=== PATIENT | female | born 1965 | race Caucasian/White ===

== ENCOUNTER → 2018-12-26 | Outpatient (CLI) | payer BC ==
--- NOTE | 2018-12-29 07:57 | MM ---
Reason for exam: screening (asymptomatic). Last mammogram was performed 1 year and 5 months ago. History: Patient is postmenopausal. Family history of breast cancer in paternal aunt at age 58, breast cancer in paternal aunt at age 56, and breast cancer in paternal cousin at age 40. Benign right mammotome panel of the right breast, November 27, 2006. Took hormonal contraceptives for 10 years beginning at age 23. Physical Findings: A clinical breast exam by your physician is recommended on an annual basis and results should be correlated with mammographic findings. MG 3D Screening Mammo W/Cad Bilateral CC and MLO view(s) were taken. XCCL view(s) were taken of the right breast. Prior study comparison: July 31, 2017, bilateral MG diagnostic mammo w CAD PING. April 30, 2016, right breast MG work up mamm w CAD RT. The breast tissue is heterogeneously dense. This may lower the sensitivity of mammography. Previous mammotome biopsy in the right posterior breast. There is chronic nodularity bilaterally. There is no discrete abnormality. ASSESSMENT: Benign, BI-RAD 2 RECOMMENDATION: Routine screening mammogram of both breasts in 1 year.
== END | disposition home or self-care (01) ==
LOC: RADMAMWWP 10:46
PROVIDERS: ATTEND Family Medicine
DX: Z12.31 Encounter for screening mammogram for malignant neoplasm of breast (principal)
CPT/HCPCS: 77063; 77067

== ENCOUNTER 2022-04-28 13:44 | Observation (INO) | payer BC ==
--- NOTE | 2022-04-28 14:18 | ED ---
General Adult HPI - General Chief complaint: Altered Mental Status Stated complaint: confusion, dizzy Time Seen by Provider: 04/28/22 13:53 Source: patient Mode of arrival: ambulatory Limitations: no limitations - History of Present Illness Initial comments: Dictation was produced using [employer] dictation software. please excuse any grammatical, word or spelling errors. Chief Complaint: 56-year-old female presents with significant other for altered mental status History of Present Illness: Is 56-year-old female presents emergency Department with her significant other. Patient states that her symptoms began 3 days ago however was significantly worse on waking up this morning. Patient and see if another were at a [facility] service when patient began having increased involuntary movements. Patient states that she's been feeling lightheaded. He decides to leave the [facility] service and came to the emergency department. Patient denies any pain complaints. Denies any constitutional symptoms. Family member states that patient's behavior is very abnormal. Patient denies any numbness or paresthesias. The ROS documented in this emergency department record has been reviewed and confirmed by me. Those systems with pertinent positive or negative responses have been documented in the HPI. All other systems are other negative and/or noncontributory. PHYSICAL EXAM: General Impression: Alert and oriented x3, not in acute distress, dystonic movements HEENT: Normocephalic atraumatic, extra-ocular movements intact, pupils equal and reactive to light bilaterally, mucous membranes moist. Cardiovascular: Heart regular rate and rhythm Chest: Able to complete full sentences, no retractions, no tachypnea Abdomen: abdomen soft, non-tender, non-distended, no organomegaly Musculoskeletal: Pulses present and equal in all extremities, no peripheral edema Motor: no focal deficits noted Neurological: CN II-XII grossly intact, no focal motor or sensory deficits noted Skin: Intact with no visualized rashes Psych: Normal affect and mood ED course: 56-year-old female presents emergency department for altered mental status, confusion and lightheadedness. Vital signs upon arrival are within acceptable limits. Patient is exhibiting signs of dystonic reaction. This point after history of present illness no obvious cause. Laboratory evaluation obtained. CBC, coag panel unremarkable. Metabolic panel shows potassium of 2.5. Urine drug screen positive for benzodiazepines. Patient given benztropine with no changes in her dystonic movements. Computed tomography scan of brain is unremarkable. At this point is unclear what is causing patient's symptoms. Patient be admitted with consultation to neurology. - Related Data Allergies Allergy/AdvReac Type Severity Reaction Status Date / Time No Known Allergies Allergy Verified 04/28/22 13:52 Review of Systems ROS Statement: Those systems with pertinent positive or pertinent negative responses have been documented in the HPI. ROS Other: All systems not noted in ROS Statement are negative. Past Medical History Past Medical History: Hypertension History of Any Multi-Drug Resistant Organisms: None Reported Past Surgical History: No Surgical Hx Reported Past Psychological History: No Psychological Hx Reported Smoking Status: Current every day smoker Past Alcohol Use History: Occasional Past Drug Use History: None Reported General Exam Limitations: no limitations Course Vital Signs 04/28/22 13:48 Temperature 98.3 F Pulse Rate 86 Respiratory 20 Rate Blood Pressure 103/64 O2 Sat by Pulse 99 Oximetry Medical Decision Making - Lab Data Result diagrams: 04/28/22 14:12 04/28/22 14:12 Lab Results 04/28/22 04/28/22 04/28/22 Range/Units 14:12 14:12 14:12 WBC 5.9 (3.8-10.6) k/uL RBC 4.59 (3.80-5.40) m/uL Hgb 13.7 (11.4-16.0) gm/dL Hct 40.7 (34.0-46.0) % MCV 88.8 (80.0-100.0) fL MCH 29.9 (25.0-35.0) pg MCHC 33.7 (31.0-37.0) g/dL RDW 12.6 (11.5-15.5) % Plt Count 211 (150-450) k/uL MPV 8.7 Neutrophils % 67 % Lymphocytes % 19 % Monocytes % 9 % Eosinophils % 1 % Basophils % 3 % Neutrophils # 3.9 (1.3-7.7) k/uL Lymphocytes # 1.1 (1.0-4.8) k/uL Monocytes # 0.5 (0-1.0) k/uL Eosinophils # 0.1 (0-0.7) k/uL Basophils # 0.2 (0-0.2) k/uL PT 11.4 (9.0-12.0) sec INR 1.1 (<1.2) APTT 24.7 (22.0-30.0) sec Sodium 134 L (137-145) mmol/L Potassium 2.5 L* (3.5-5.1) mmol/L Chloride 99 (98-107) mmol/L Carbon Dioxide 25 (22-30) mmol/L Anion Gap 10 mmol/L BUN 11 (7-17) mg/dL Creatinine 0.71 (0.52-1.04) mg/dL Est GFR (CKD-EPI)AfAm >90 (>60 ml/min/1.73 sqM) Est GFR (CKD-EPI)NonAf >90 (>60 ml/min/1.73 sqM) Glucose 128 H (74-99) mg/dL Calcium 9.2 (8.4-10.2) mg/dL Magnesium 1.7 (1.6-2.3) mg/dL Total Bilirubin 0.3 (0.2-1.3) mg/dL AST 30 (14-36) U/L ALT 17 (4-34) U/L Alkaline Phosphatase 69 (38-126) U/L Total Protein 7.1 (6.3-8.2) g/dL Albumin 4.3 (3.5-5.0) g/dL Urine Opiates Screen (NotDetected) Ur Oxycodone Screen (NotDetected) Urine Methadone Screen (NotDetected) Ur Propoxyphene Screen (NotDetected) Ur Barbiturates Screen (NotDetected) U Tricyclic Antidepress (NotDetected) Ur Phencyclidine Scrn (NotDetected) Ur Amphetamines Screen (NotDetected) U Methamphetamines Scrn (NotDetected) U Benzodiazepines Scrn (NotDetected) Urine Cocaine Screen (NotDetected) U Marijuana (THC) Screen (NotDetected) 04/28/22 Range/Units 14:13 WBC (3.8-10.6) k/uL RBC (3.80-5.40) m/uL Hgb (11.4-16.0) gm/dL Hct (34.0-46.0) % MCV (80.0-100.0) fL MCH (25.0-35.0) pg MCHC (31.0-37.0) g/dL RDW (11.5-15.5) % Plt Count (150-450) k/uL MPV Neutrophils % % Lymphocytes % % Monocytes % % Eosinophils % % Basophils % % Neutrophils # (1.3-7.7) k/uL Lymphocytes # (1.0-4.8) k/uL Monocytes # (0-1.0) k/uL Eosinophils # (0-0.7) k/uL Basophils # (0-0.2) k/uL PT (9.0-12.0) sec INR (<1.2) APTT (22.0-30.0) sec Sodium (137-145) mmol/L Potassium (3.5-5.1) mmol/L Chloride (98-107) mmol/L Carbon Dioxide (22-30) mmol/L Anion Gap mmol/L BUN (7-17) mg/dL Creatinine (0.52-1.04) mg/dL Est GFR (CKD-EPI)AfAm (>60 ml/min/1.73 sqM) Est GFR (CKD-EPI)NonAf (>60 ml/min/1.73 sqM) Glucose (74-99) mg/dL Calcium (8.4-10.2) mg/dL Magnesium (1.6-2.3) mg/dL Total Bilirubin (0.2-1.3) mg/dL AST (14-36) U/L ALT (4-34) U/L Alkaline Phosphatase (38-126) U/L Total Protein (6.3-8.2) g/dL Albumin (3.5-5.0) g/dL Urine Opiates Screen Not Detected (NotDetected) Ur Oxycodone Screen Not Detected (NotDetected) Urine Methadone Screen Not Detected (NotDetected) Ur Propoxyphene Screen Not Detected (NotDetected) Ur Barbiturates Screen Not Detected (NotDetected) U Tricyclic Antidepress Not Detected (NotDetected) Ur Phencyclidine Scrn Not Detected (NotDetected) Ur Amphetamines Screen Not Detected (NotDetected) U Methamphetamines Scrn Not Detected (NotDetected) U Benzodiazepines Scrn Detected H (NotDetected) Urine Cocaine Screen Not Detected (NotDetected) U Marijuana (THC) Screen Not Detected (NotDetected) Disposition Clinical Impression: Dystonia Disposition: ADMITTED IP TO THIS [facility] Condition: Fair Referrals: Olvin Moseley MD [Primary Care Provider] - 1-2 days Decision Time: 15:22
[2022-04-28] MEDS ORDERED: BENZTROPINE 2 MG/2 ML AMP IV STA (14:20)
[2022-04-28 14:29] LABS: Basophils # (A) 0.2 k/uL (0-0.2); Basophils % (A) 3 %; Eosinophils # (A) 0.1 k/uL (0-0.7); Eosinophils % (A) 1 %; HCT 40.7 % (34.0-46.0); HGB 13.7 gm/dL (11.4-16.0); Lymphocytes # (A) 1.1 k/uL (1.0-4.8); Lymphocytes % (A) 19 %; MCH 29.9 pg (25.0-35.0); MCHC 33.7 g/dL (31.0-37.0); MCV 88.8 fL (80.0-100.0); Mean Platelet Volume 8.7; Monocytes # (A) 0.5 k/uL (0-1.0); Monocytes % (A) 9 %; Neutrophils # (A) 3.9 k/uL (1.3-7.7); Neutrophils % (A) 67 %; Platelet Count 211 k/uL (150-450); RBC 4.59 m/uL (3.80-5.40); RDW 12.6 % (11.5-15.5); WBC 5.9 k/uL (3.8-10.6)
[2022-04-28 14:39] LABS: INR 1.1 (<1.2); Partial Thromboplastin Time 24.7 sec (22.0-30.0); Prothrombin Time 11.4 sec (9.0-12.0)
[2022-04-28 14:41] LABS: ALT 17 U/L (4-34); AST 30 U/L (14-36); African American GFR (CKD) >90 (>60 ml/min/1.73 sqM); Albumin 4.3 g/dL (3.5-5.0); Alkaline Phosphatase 69 U/L (38-126); Anion Gap 10 mmol/L; Blood Urea Nitrogen 11 mg/dL (7-17); Calcium 9.2 mg/dL (8.4-10.2); Carbon Dioxide 25 mmol/L (22-30); Chloride 99 mmol/L (98-107); Glucose 128 mg/dL (74-99); Magnesium 1.7 mg/dL (1.6-2.3); Non-African American GFR(CKD) >90 (>60 ml/min/1.73 sqM); Sodium 134 mmol/L (137-145); Total Bilirubin 0.3 mg/dL (0.2-1.3); Total Protein 7.1 g/dL (6.3-8.2)
[2022-04-28 14:44] LABS: Amphetamine Screen,Urine Not Detected (NotDetected); Barbiturate Screen,Urine Not Detected (NotDetected); Benzodiazepines Screen,Urine Detected (NotDetected); Cocaine Screen,Urine Not Detected (NotDetected); Methadone Screen, Urine Not Detected (NotDetected); Opiate Screen,Urine Not Detected (NotDetected); Oxycodone Screen, Urine Not Detected (NotDetected); Phencyclidine Screen,Urine Not Detected (NotDetected); Tricyclic Antidepressant,Urine Not Detected (NotDetected); Urn Cannabinoid Scrn Not Detected (NotDetected)
[2022-04-28 14:49] LABS: Potassium 2.5 mmol/L (3.5-5.1)
--- NOTE | 2022-04-28 14:57 | CT ---
EXAMINATION TYPE: CT brain wo con DATE OF EXAM: 04/28/2022 COMPARISON: None HISTORY: Altered mental status. CT DLP: 1099.4 mGycm Automated exposure control for dose reduction was used. Ventricles and sulci appear normal. There is no mass effect or midline shift. No sign of intracranial hemorrhage. Calvarium is intact. Skull base is intact. IMPRESSION: Normal unenhanced head CT scan.
[2022-04-28] MEDS ORDERED: NALOXONE 0.4 MG/ML 1 ML VIAL IV PRN (15:22)
[2022-04-28] MEDS ORDERED: ONDANSETRON 4 MG/2 ML VIAL IVP PRN (15:22)
[2022-04-28] MEDS: POTASSIUM CHLORIDE 20 MEQ in WATER FOR INJECTION 1 100ML.BAG IVPB SCH ×2 (15:27→20:53)
[2022-04-28] MEDS: SODIUM CHLORIDE 0.9% 1,000 ML IV SCH (15:34)
[2022-04-28] MEDS: POTASSIUM CHLORIDE ER 20 MEQ TAB.ER PO SCH (22:15)
[2022-04-29] MEDS: POTASSIUM CHLORIDE ER 20 MEQ TAB.ER PO SCH ×3 (08:56→21:26)
[2022-04-29 13:56] LABS: African American GFR (CKD) 112.4 (60.0-200.0); BUN/Creat Ratio 11.89 Ratio (12.00-20.00); Blood Urea Nitrogen 8.1 mg/dL (9.0-27.0); Calcium 8.6 mg/dL (8.7-10.3); Carbon Dioxide 21.2 mmol/L (20.0-27.5); Potassium 2.8 mmol/L (3.5-5.5)
[2022-04-29] MEDS: SODIUM CHLORIDE 0.9% 1,000 ML IV SCH (14:42)
[2022-04-29] MEDS ORDERED: ASPIRIN 81 MG PO STA (15:37)
--- NOTE | 2022-04-29 15:43 | P.CNNES ---
History of Present Illness Consult date: 04/29/22 Requesting physician: Zia Castillo Reason for Consult: Acute dystonia History of Present Illness: Patient is a 56-year-old right-handed female with history of hypertension, tobacco use came to the hospital yesterday at 1:44 PM for mental confusion, involuntary movements. Patient states that her cousins in August 2021. Patient was arranging the [facility] him, which occurred yesterday. She had been under stress, very busy for the last 3 days, preparing for the [facility]. Yesterday on the day of event, when she got out of bed, felt has no energy. She noticed that everybody has left and then she was running around the house, couldn't think, doing everything 6 times. She couldn't get things together. She got out of the house, had no makeup on. When she arrived to the [facility], she sat down in the chair and felt better. Patient apparently appears to be having tardive dyskinesia, with lip smacking. I spoke to patient's , who states that she has this tardive dyskinesia-type movements for last 3 years, which has slightly progressed over years, but became acutely worse yesterday. Yesterday he noticed all of a sudden, she was not acting right, her arms and legs and feet were twitching. They have been for last 20 years. She was very confused, disoriented, dizzy and nauseated, uncontrollable muscle spasms/twitches. Her chest was beat-red. He brought her to the hospital. Patient denies depression, although may get depressed "here and there", but never been treated, denies any bipolar disorder. No anxiety issues. Never been on psych medications. Vital signs arrival blood pressure 103/64 pulse rate 86 temperature 98.3. Blood test shows normal CBC, sodium is 134, potassium 2.5, renal functions are normal, hepatic panel normal. Urine drug screen positive for benzodiazepine. CT head is reported as normal. I personally reviewed CT head, agree with the findings. EKG shows sinus rhythm, incomplete right bundle branch block. Patient has hypertension, hyperlipidemia, heart murmur, denies diabetes. Patient states that she started smoking one pack per day at age 15, but she continued to age 29. When she reduced to smoking half pack per day and still smokes. She drinks alcohol once a week, not a heavy drinker. Denies any history of strokes. Patient's home medications include chlorthalidone, potassium, ibuprofen, Flexeril 10 mg at bedtime, benazepril, Xanax 0.5 mg daily, vitamin D. Patient states she does not take any antiplatelet medication at home. She lives with her and 2 children. Review of Systems All 14 points of review of systems reviewed, unremarkable except as mentioned above in HPI. Past Medical History Past Medical History: Hypertension Additional Past Medical History / Comment(s): Heart murmmer; had to stop heart to regulate rythm History of Any Multi-Drug Resistant Organisms: None Reported Past Surgical History: No Surgical Hx Reported, Tubal Ligation Past Anesthesia/Blood Transfusion Reactions: No Reported Reaction Additional Past Anesthesia/Blood Transfusion Reaction / Comment(s): No Hx of blood transfushion Past Psychological History: Anxiety Smoking Status: Current every day smoker Past Alcohol Use History: Occasional Past Drug Use History: None Reported Medications and Allergies Home Medications Medication Instructions Recorded Confirmed Type ALPRAZolam [Xanax] 0.5 mg PO DAILY 04/28/22 04/28/22 History Benazepril [Lotensin] 10 mg PO DAILY 04/28/22 04/28/22 History Chlorthalidone [Hygroton] 25 mg PO DAILY 04/28/22 04/28/22 History Cyclobenzaprine [Flexeril] 10 mg PO HS 04/28/22 04/28/22 History Ergocalciferol (Vitamin D2) 1,250 mcg PO QMONTHLY 04/28/22 04/28/22 History [Drisdol] Ibuprofen [Motrin] 800 mg PO QID PRN 04/28/22 04/28/22 History Potassium Chloride ER [K-Dur 10] 10 meq PO DAILY 04/28/22 04/28/22 History Allergies Allergy/AdvReac Type Severity Reaction Status Date / Time No Known Allergies Allergy Verified 04/28/22 13:52 Physical Examination - Vital Signs Vital Signs: Vital Signs Temp Pulse Pulse Resp BP BP Pulse Ox 04/29/22 08:00 18 04/29/22 07:51 98.0 F 75 18 108/75 94 L 04/29/22 01:09 98.7 F 69 18 105/70 94 L 04/28/22 20:47 99.5 F 76 18 99/58 94 L 04/28/22 18:28 99.6 F 78 20 117/75 98 04/28/22 18:20 51 L 18 101/74 96 Intake and Output 04/28/22 04/29/22 04/29/22 22:59 06:59 14:59 Other: Voiding Method Toilet # Voids 1 1 Weight 57.606 kg Patient is a middle aged female, very pleasant in no acute distress. Patient is alert awake oriented to time place and person. Speech and language functions are normal. No aphasia or dysarthria. Patient can name and repeat very well. Attention, concentration and fund of knowledge is adequate. On cranial examination, pupils are equal, round and reacting to light, visual vasquez are full on confrontation, with no neglect on double simultaneous stimulation. Her extraocular muscles are intact with no nystagmus. Face is symmetric, tongue protrudes to the midline. Palatal elevation and sensation normal, hearing and shoulder shrug normal, facial sensation normal. Shoulder shrug normal. On muscle strength testing, there is no pronator drift and the strength is normal in arms and legs distally and proximally. Deep tendon reflexes are symmetric, 1+ to 2 at the biceps and brachioradialis, 2 at the knees, 1 at ankles and plantars downgoing bilaterally. Sensory to touch is equal with no neglect. Cerebellar function showed ataxia for [id number], and [id number] testing only on the left. Tone and bulk of muscles normal. Patient appears to have tardive dyskinesia, with lip smacking, restlessness in general as well. Gait deferred. On general examination, there is no carotid bruit or murmur, S1-S2 audible. Abdomen is soft nontender. No organomegaly, bowel sounds present. Chest is clear. Peripheral pulses are present. No edema. Results - Laboratory Findings CBC and BMP: 04/28/22 14:12 04/29/22 07:58 Abnormal Lab Findings: Abnormal Labs 04/28/22 04/28/22 14:12 14:13 Sodium 134 L Potassium 2.5 L* Glucose 128 H U Benzodiazepines Scrn Detected H Assessment and Plan Assessment: * Involuntary movements of arms and legs noticed since yesterday. Examination reveals ataxia involving left side of the body. Rule out CVA. * Possible tardive dyskinesia for 3 years, unclear cause. No previous use of psych medications. * Hypertension * Hyperlipidemia * Tobacco use Plan: * MRI of the brain to evaluate for acute stroke * Carotid Doppler * 2-D echo * Fasting lipid panel, hemoglobin A1c * Aspirin 324 mg 1 dose, then 81 mg daily. * B12, folate. * Telemetric monitoring. * Dr. Gonzalo Thomas Will resume neurology service in the morning. * Thank you for the consult. Time with Patient: Greater than 30
[2022-04-29] MEDS ORDERED: IBUPROFEN 800 MG TAB PO PRN (18:32)
--- NOTE | 2022-04-29 20:55 | XR ---
EXAMINATION TYPE: Chest x-ray 2 views DATE OF EXAM: 04/29/2022 COMPARISON: 01/04/2013 HISTORY: Confusion TECHNIQUE: 2 views FINDINGS: There is some linear density left lung base. Heart size is normal. There are no hilar benedict s. Mediastinum is normal. Bony thorax appears normal. IMPRESSION: There is mild subsegmental atelectasis left lung base that appears new compared to old exam. Normal h eart.
--- NOTE | 2022-04-29 21:07 | US ---
EXAMINATION TYPE: US carotid duplex BILAT DATE OF EXAM: 04/29/2022 COMPARISON: CT CLINICAL HISTORY: Ataxia, possible CVA. Possible CVA, ataxia per order. Current smoker. Hypertension. TECHNIQUE: Carotid duplex ultrasound examination. Indirect Doppler criteria was utilized. FINDINGS: EXAM MEASUREMENTS: RIGHT: Peak Systolic Velocity (PSV) cm/sec ----- Right CCA: 86.2 ----- Right ICA: 83.6 ----- Right ECA: 83.4 ICA/CCA ratio: 1.0 RIGHT: End Diastole cm/sec ----- Right CCA: 24.1 ----- Right ICA: 28.0 ----- Right ECA: 15.4 LEFT: Peak Systolic Velocity (PSV) cm/sec ----- Left CCA: 77.6 ----- Left ICA: 80.9 ----- Left ECA: 80.9 ICA/CCA ratio: 1.0 LEFT: End Diastole cm/sec ----- Left CCA: 24.8 ----- Left ICA: 38.0 ----- Left ECA: 17.1 VERTEBRALS (direction of flow): Right Vertebral: Antegrade Left Vertebral: Antegrade Rhythm: Normal [employer] EDUCATION TEACHER NOTES: Intimal thickening seen bilaterally. No elevated velocities. Hypoechoic area with hyperechoic center seen left neck: 1.8 x 0.9 x 0.6 cm. Incidental finding: Hypoechoic nodule seen within the left thyroid lobe: 1.2 x 1.0 x 0.8 cm. IMPRESSION: There is antegrade flow in the vertebral arteries. The images and the measurements suggest less than 15% stenosis in both internal carotid arteries. 12 x 8 mm oval-shaped nodule in the left thyroid lobe has some posterior enhancement and likely a com plex cyst. Criteria for Assigning % of Stenosis / Diameter reduction (Estimation based on the indirect measurements of the internal carotid artery velocities (ICA PSV). 1. Normal (no stenosis)=ICA PSV < 125 cm/s: ratio < 2.0: ICA EDV<40 cm/s. 2. Less than 50% stenosis=ICA PSV < 125 cm/s: ratio < 2.0: ICA EDV<40 cm/s. 3. 50 to 69% stenosis=ICA PSV of 125 to 230 cm/s: ration 2.0 ? 4.0: ICA EDV 40-100 cm/s. 4. Greater than 70% stenosis to near occlusion= ICA PSV > 230 cm/s: ratio > 4.0: ICA EDV > 100 cm/s. 5. Near occlusion= ICA PSV velocities may be low or undetectable: variable ratio and ICA EDV. 6. Total occlusion=unable to detect flow.
[2022-04-29 23:42] LABS: Appearance,Urine Clear (Clear); Bacteria,Urine Rare /hpf; Bilirubin,Urine Negative (Negative); Blood,Urine Small (Negative); Color,Urine Light Yellow; Glucose,Urine (UA) Negative (Negative); Ketones,Urine Negative (Negative); Leukocyte Esterase,Urine Small (Negative); Nitrite,Urine Negative (Negative); Protein,Urine Negative (Negative); RBC,Urine 3 /hpf (0-5); Specific Gravity,Urine 1.015 (1.001-1.035); Squamous Epithelial Cell,Urine 4 /hpf (0-4); Urobilinogen,Urine <2.0 mg/dL (<2.0); WBC,Urine 2 /hpf (0-5)
[2022-04-30] MEDS: POTASSIUM CHLORIDE ER 20 MEQ TAB.ER PO SCH ×3 (09:46→21:14)
[2022-04-30] MEDS: ALPRAZolam 0.5 MG TAB PO SCH (09:46)
[2022-04-30] MEDS: ASPIRIN 81 MG PO SCH (09:46)
[2022-04-30] MEDS: lisinopriL 10 MG TAB PO SCH ×2 (09:46→09:47)
--- NOTE | 2022-04-30 10:00 | CA ---
Transthoracic Echo Report Name: Arabella Strong Age: 56 Gender: F : 1965 Exam Date: 04/30/2022 08:45 Exam Location: [facility] Ht (in): 59 Wt (lb): 127 Ordering Physician: Jovita Santos MD Attending/Referring Phys: Land Leases And Rentals Manager Astrid Barakat RDCS Procedure CPT: Indications: Ataxia, possible CVA Cardiac Hx: Technical Quality: Good Contrast 1: Total Dose (mL): Contrast 2: Total Dose (mL): MEASUREMENTS (Male / Female) Normal Values 2D ECHO LV Diastolic Diameter PLAX 3.9 cm 4.2 - 5.9 / 3.9 - 5.3 cm LV Systolic Diameter PLAX 2.5 cm IVS Diastolic Thickness 1.1 cm 0.6 - 1.0 / 0.6 - 0.9 cm LVPW Diastolic Thickness 1.0 cm 0.6 - 1.0 / 0.6 - 0.9 cm LV Relative Wall Thickness 0.5 RV Internal Dim ED PLAX 2.4 cm LA Systolic Diameter LX 2.4 cm 3.0 - 4.0 / 2.7 - 3.8 cm LA Volume 31.6 cm??? 18 - 58 / 22 - 52 cm??? M-MODE Aortic Root Diameter MM 3.0 cm MV E Point Septal Separation 0.2 cm AV Cusp Separation MM 1.8 cm DOPPLER AV Peak Velocity 137.0 cm/s AV Peak Gradient 7.5 mmHg MV Area PHT 2.7 cm??? Mitral E Point Velocity 81.0 cm/s Mitral A Point Velocity 70.2 cm/s Mitral E to A Ratio 1.2 MV Deceleration Time 281.8 ms FINDINGS Left Ventricle Left ventricular ejection fraction is estimated at 60-65 %. Left ventricular cavity size normal. Left ventricular wall thickness normal. Right Ventricle Normal right ventricular size and function. Unable to estimate the right ventricular systolic pressure. Right Atrium Normal right atrial size. Left Atrium Normal left atrial size. No evidence for an atrial septal defect. Mitral Valve Structurally normal mitral valve. No mitral stenosis, regurgitation or prolapse. Aortic Valve Trileaflet aortic valve. No aortic valve stenosis or regurgitation. Tricuspid Valve Structurally normal tricuspid valve. Pulmonic Valve Trace pulmonic regurgitation. Pericardium Normal pericardium. No pericardial effusion. Aorta Normal size aortic root and proximal ascending aorta. CONCLUSIONS Normal LV size and systolic function ejection fraction greater than 60-65% Previewed by: Dr. Errol Mcghee MD (Electronically Signed) Final Date: 30 April 2022 09:59
[2022-04-30 11:23] LABS: Chol/HDL Ratio 3.59 Ratio; LDL Cholesterol,Calculated 104.5 mg/dL (0.0-131.0)
--- NOTE | 2022-04-30 12:49 | MR ---
EXAMINATION TYPE: MR brain wo con DATE OF EXAM: 04/30/2022 COMPARISON: CT brain 2 days ago. HISTORY: Left-sided ataxia, rule out CVA TECHNIQUE: Multiplanar, multisequence imaging of the brain and brainstem is performed without IV cont rast. FINDINGS: Diffusion weighted images demonstrate no evidence of a recent infarct or other diffusion abnormality. There is no extraaxial fluid collection or significant white matter signal abnormality. The ventricu lar system and cisternal spaces are normal in size and appearance. The brain volume is age appropria te. Midline structures demonstrate normal morphology. The craniocervical junction appears within normal limits. Normal vascular flow voids are present. The visualized sinuses are clear and the globes are i ntact. IMPRESSION: No MRI evidence for recent infarct. Fairly unremarkable study.
--- NOTE | 2022-04-30 14:48 | P.PN ---
Subjective Progress Note Date: 04/30/22 I am seeing the patient for the first time during this hospital visit. Please refer to Dr. Santos's note for further details. Of note seems the patient has been having involuntary movement of her extremitie s and Dr. Bonds fell on his examination the patient had ataxia involving the left side of body and wanted to rule out stroke. I spoke with the patient as well as the her and sister who are bedside seems that the patient has been having lipsmacking with been going on her years but has been worse and in the past 3 years. During these episodes she is responsive and following commands. She's been having uncontrollable jerking of her feet also for years. She does not have any known history of seizures. Since this past Saturday or even a couple days before she's been having confusion, uncontrollable jerking of all extremities. It seems that she was extremely confused this past weekend. According to the sister she was notified by her primary care physician that this was related to stress. She does smoke tobacco on a daily basis appears as she socially drinks alcohol. She denies any illicit drug use. She does have family history of cancer in which she has a brother who had the thyroid cancer. Objective - Vital Signs Vital signs: Vital Signs Temp 98.7 F 04/30/22 07:31 Pulse 63 04/30/22 08:10 Resp 16 04/30/22 08:10 BP 80/59 04/30/22 07:31 Pulse Ox 98 04/30/22 07:31 FiO2 Intake & Output 04/29/22 04/30/22 04/30/22 18:59 06:59 18:59 Other: Voiding Method Toilet Toilet Toilet # Voids 2 3 1 # Bowel Movements 2 2 - Exam GENERAL: The patient is lying in bed and is not in acute distress. NEUROLOGICAL: Higher mental function: The patient is awake, alert, oriented to self, place and time. Patient is following commands. No aphasia and no neglect. Cranial nerves: The pupils are round, equal and reactive to light and accommodation. Visual vasquez are full to confrontation throughout. Extraocular movement is intact no nystagmus is noted. Facial sensation is normal to touch throughout. The facial strength is normal throughout. Hearing is normal bilaterally to hand rub. Tongue is midline and moved [id number] without any difficulty. No dysarthria is noted. Shoulder shrug is normal bilaterally. Motor: The strength is 5 over 5 throughout. Normal tone and bulk. Cerebellum: Has dysmetria over the left side (mostly left lower > upper and left lower >right lower). Sensation: Sensation is normal to touch throughout. - Labs CBC & Chem 7: 04/28/22 14:12 04/29/22 07:58 Labs: Abnormal Lab Results - Last 24 Hours (Table) 04/29/22 04/29/22 Range/Units 07:58 23:15 Sodium 134 L (135-145) mmol/L Potassium 2.8 L (3.5-5.5) mmol/L BUN 8.1 L (9.0-27.0) mg/dL BUN/Creatinine Ratio 11.89 L (12.00-20.00) Ratio Glucose 112 H (70-110) mg/dL Calcium 8.6 L (8.7-10.3) mg/dL Urine Blood Small H (Negative) Ur Leukocyte Esterase Small H (Negative) Urine Bacteria Rare H (None) /hpf Assessment and Plan Assessment: * Involuntary movements of arms and legs with confusion noticed since at least this past Saturday, on examination has dysmetria predominately left side (lower > upper): Unsure cause but rule out paraneoplastic syndrome especially with family history of thyroid cancer and on imaging has cyst over the thyroid on left. Encephalopathy of unknown etiology---improved. Rule out seizure. MRI Brain is negative for stroke. * Lip smacking and jerking of feet worse for the past 3 years * Hypertension * Hyperlipidemia * Tobacco use * Family history of thyroid cancer (brother in late 40's years old) Plan: MRI the brain is reported as no MRI evidence for recent infarct. Fairly Unremark able study. I personally reviewed the MRI and agree with report. Carotid duplex is reported as there is antegrade flow in the vertebral arteries. Images and measurements suggest less than 15% stenosis in both internal carotid arteries. Rommel by 8 cm oval shaped nodule in the left thyroid lobe has some posture enhancement likely, complex cyst. I'll defer further investigation of the thyroid to the primary team 2-D echo was reported as normal left ventricle size and systolic function ejection fraction greater than 6065%. Left atrium is normal and no evidence of for atrial septal defects that is reported. Lipid panel is triglyceride of 105, cholesterol is 174, LDLs 104 and HDL is 48. Next on vitamin B12 is 717 Serum folate is more than 20 TSH is 0.384 EEG is completed and pending final report. I ordered MRI Cervical and lumbar w/ and w/o. If negative for significant abnormality will consider lumbar puncture to rule out any paraneoplastic causing her involuntary movment. Patient was counseled on tobacco cessation Neurologic perspective the patient does not have a stroke or TIA and does not need to be on aspirin. We'll defer the rest of the medical management to primary team I highly recommend the patient follow up with a neurologist as an outpatient within 1-2 weeks. Recommend a longer term EEG if. Patient continues to have further involuntary movement to rule out any seizures. The plan is discussed with patient, her and sister (who are at bedside) and primary team. Gonzalo Thomas M.D. Neuro-hospitalist Time with Patient: Less than 30
[2022-05-01] MEDS: SODIUM CHLORIDE 0.9% 1,000 ML IV SCH (00:54)
--- NOTE | 2022-05-01 01:12 | EEG ---
ELECTROENCEPHALOGRAM REPORT CLINICAL HISTORY: This is a 56-year-old woman with involuntary movement of her extremities. The video EEG is obtained to evaluate for seizure and epileptiform activity. RELEVANT MEDICATION: The patient is not on any antiepileptic drugs. EEG TYPE: A routine 21-channel EEG is performed with video using the 10/20 electrode placement system. DESCRIPTION: Wakefulness is only obtained. During awake state, the posterior-dominant rhythm consists of [id number] voltage of 9 to 10 Hz activity, that is well modulated and well sustained. There is no physiological stage II sleep architecture. There is no focal slowing. Interictal or ictal is none. ACTIVATION PROCEDURE: Photic stimulation did not evoke a posterior driving response. There is no abnormality during the photic stimulation. Hyperventilation is not performed. CLINICAL INTERPRETATION: This is a normal routine EEG. There is no focal slowing, epileptiform discharge, or seizure on the EEG. Clinical correlation is recommended MMRENE / FAINA: [id number] /
[2022-05-01] MEDS: ASPIRIN 81 MG PO SCH (09:07)
[2022-05-01] MEDS: ALPRAZolam 0.5 MG TAB PO SCH (09:07)
[2022-05-01] MEDS: lisinopriL 10 MG TAB PO SCH (09:07)
[2022-05-01] MEDS: POTASSIUM CHLORIDE ER 20 MEQ TAB.ER PO SCH ×2 (09:08→18:28)
--- NOTE | 2022-05-01 12:04 | MR ---
EXAMINATION TYPE: MR renee/delmis wo/w con DATE OF EXAM: 05/01/2022 COMPARISON: HISTORY: Dysmetria of left side. Rule out cancer CONTRAST: Performed utilizing 6 mL intravenous Gadavist gadolinium contrast. TECHNIQUE: Multiplanar multiecho imaging on a 3.0 Priyanka magnet is performed through the cervical spin e. FINDINGS: The craniovertebral junction is normal. Vertebral body alignment is normal. C7-T1: No focal disc herniation or significant disc bulge is evident. No spinal canal stenosis or n eural foraminal stenosis is present. C6-7: No focal disc herniation or significant disc bulge is evident. No spinal canal stenosis or [place] ral foraminal stenosis is present. C5-6: No focal disc herniation or significant disc bulge is evident. No spinal canal stenosis or [place] ral foraminal stenosis is present. C4-5: There is a small central protrusion with mild to moderate intrathecal sac compression. No cord contact is evident. No spinal canal stenosis is present. C3-4: No focal disc herniation or significant disc bulge is evident. No spinal canal stenosis or [place] ral foraminal stenosis is present. C2-3: No focal disc herniation or significant disc bulge is evident. No spinal canal stenosis or [place] ral foraminal stenosis is present. No abnormal enhancement is evident. IMPRESSIONS: 1. Small central protrusion C4-5 with moderate anterior thecal sac compression no cord contact. EXAMINATION TYPE: MR renee/delmis wo/w con DATE OF EXAM: 05/01/2022 COMPARISON: None HISTORY: Dysmetria of left side. Rule out cancer CONTRAST: 6 mL intravenous Gadavist. TECHNIQUE: Multiplanar, multisequence images of the lumbar spine were acquired. Some motion artifact is present during the examination causing limitation. FINDINGS: Cord terminates at the L1 level. L5-S1: No significant disc bulge or disc herniation. No spinal canal stenosis. No foraminal stenosi s. Facet hypertrophy is present without thecal sac compression.. L4-L5: A based disc bulge and anterior thecal sac, contact. No AP spinal canal stenosis is present. F acet hypertrophy is present with ligamentum flavum laxity. This is mild posterior lateral thecal sac contact. Severe left foraminal stenosis is present.. L3-L4: No significant disc bulge or disc herniation. No spinal canal stenosis. No foraminal stenosi s. Neural foramen are patent.. L2-L3: No significant disc bulge or disc herniation. No spinal canal stenosis. No foraminal stenosi s. Neural foramen are patent.. L1-L2: No significant disc bulge or disc herniation. No spinal canal stenosis. No foraminal stenosi s. Neural foramen are patent.. T12-L1: No significant disc bulge or disc herniation. No spinal canal stenosis. No foraminal stenos is. Neural foramen are patent.. No abnormal enhancement. IMPRESSION: 1. Mild disc bulge at L4-5 without spinal canal stenosis. This has mild anterior thecal sac flattenin g. 2. Severe left foraminal stenosis L4-5
--- NOTE | 2022-05-01 13:46 | P.PN ---
Subjective Progress Note Date: 05/01/22 The patient feels she is doing better. Objective - Vital Signs Vital signs: Vital Signs Temp 98.1 F 05/01/22 07:30 Pulse 57 L 05/01/22 07:30 Resp 16 05/01/22 07:30 BP 105/67 05/01/22 07:30 Pulse Ox 96 05/01/22 07:30 FiO2 Intake & Output 04/30/22 05/01/22 05/01/22 18:59 06:59 18:59 Intake Total 120 590 Output Total 3 Balance 117 590 Intake: Oral 120 590 Output: Urine 3 Other: Voiding Method Toilet Toilet # Voids 1 1 - Exam GENERAL: The patient is lying in bed and is not in acute distress. NEUROLOGICAL: Higher mental function: The patient is awake, alert, oriented to self, place and time. Patient is following commands. No aphasia and no neglect. Cranial nerves: The pupils are round, equal and reactive to light and accommodation. Visual vasquez are full to confrontation throughout. Extraocular movement is intact no nystagmus is noted. Facial sensation is normal to touch throughout. The facial strength is normal throughout. Hearing is normal bilaterally to hand rub. Tongue is midline and moved [id number] without any difficulty. No dysarthria is noted. Shoulder shrug is normal bilaterally. Motor: The strength is 5 over 5 throughout. Normal tone and bulk. Cerebellum: Has dysmetria over the left side (mostly left lower > upper and left lower >right lower). Sensation: Sensation is normal to touch throughout. SOME OF THE WORK-UP DURING THIS HOSPITAL VISIT CONSISTED OF: TSH: 0.384, FREE T4: 1.030 Lipid panel is triglyceride of 105, cholesterol is 174, LDLs 104 and HDL is 48. Next on vitamin B12 is 717 Serum folate is more than 20 Vitamin B12: 717 HbA1: 5.8 MRI the brain is reported as no MRI evidence for recent infarct. Fairly Unremarkable study. I personally reviewed the MRI and agree with report. Carotid duplex is reported as there is antegrade flow in the vertebral arteries. Images and measurements suggest less than 15% stenosis in both internal carotid arteries. Rommel by 8 cm oval shaped nodule in the left thyroid lobe has some posture enhancement likely, complex cyst. 2-D echo was reported as normal left ventricle size and systolic function ejection fraction greater than 6065%. Left atrium is normal and no evidence of for atrial septal defects that is reported. Routine EEG: Normal. MRI Lumbar spine: Mild disc buldge at L4-L5 without spinal canal stenosis. This has mild anterior thecal sac flattening. Severe left foraminal stenosis L4-L5. MRI Cervical: Small central protrusion C4-C5 with moderate anterior thecal sac compression no cord contact. - Labs CBC & Chem 7: 04/28/22 14:12 04/29/22 07:58 Assessment and Plan Assessment: * Involuntary movements of arms and legs with confusion noticed since at least this past Saturday, on examination has dysmetria predominately left side (lower > upper): Unsure cause. Rule out paraneoplastic syndrome especially with family history of thyroid cancer and on imaging has cyst over the thyroid on left (not sure if that is benign cyst). Encephalopathy of unknown etiology---improved. MRI Brain is negative for stroke. * Severe left foraminal stenosis L4-L5. * Lip smacking and jerking of feet worse for the past 3 years possible dyskinesia: No previous use of psych medications. * Hypertension * Hyperlipidemia * Tobacco use * Family history of thyroid cancer (brother in late 40's years old) Plan: Carotid duplex is reported as there is antegrade flow in the vertebral arteries. Images and measurements suggest less than 15% stenosis in both internal carotid arteries. Rommel by 8 cm oval shaped nodule in the left thyroid lobe has some posture enhancement likely, complex cyst. I'll defer further investigation of the thyroid to the primary team. Patient has a brother with history of thyroid cancer in his late 40's years old. Patient is agreement of further work-up as outpatient and possible consider lumbar puncture if she does have any further episodes of confusion or was di scovered to have thyroid cancer. Patient was counseled on tobacco cessation Neurologic perspective the patient does not have a stroke or TIA and does not need to be on aspirin. We'll defer the rest of the medical management to primary team I highly recommend the patient follow up with a neurologist as an outpatient within 1-2 weeks. Recommend a longer term EEG if continues to have further confusion of involuntary movement to rule out any seizures. The plan is discussed with patient and her (via phone). Gonzalo Thomas M.D. Neuro-hospitalist Time with Patient: Less than 30
[2022-05-01 14:40] VITALS: BP 100/58; PULSE 68; RESP 20; TEMP 99.4
--- NOTE | 2022-05-02 01:34 | HP ---
HISTORY AND PHYSICAL CHIEF COMPLAINT: Anxiety and athetosis. HISTORY OF PRESENT ILLNESS: admission for this 56-year-old white female, who has otherwise been in fairly good health. She was in the office recently for refills on her medications. She does have mild essential hypertension, otherwise does well. She is an anxious individual. She came to the emergency room after she had an event where she suddenly felt like her face was flushed and she was confused. She has a slight headache, it was in the occipital area. She did notice that she had a little bit of blurred vision associated with it. The chest is a little bit tight and she was slightly short of breath. She also noticed that she had some tremors or shakiness in her hands. She has been under a little bit of stress on planning memorial. She suddenly became worse and came to the hospital. She has never had anything like this before and she has no family history. There has been no significant change in the vision. REVIEW OF SYSTEMS: Otherwise unremarkable. She has had no shortness of breath, chest pain, abdominal pain, nausea, vomiting, diarrhea, melena, urinary complaints, diabetes, etc. Past medical history, family history, personal and social histories reveal she is allergic to Ultram. MEDICATIONS: She takes: 1. Xanax 0.5 once a day p.r.n. 2. Potassium 10 mEq once a day. In the emergency room, her potassium was 2.8. She is also on: 1. Flexeril p.r.n. 2. Chlorthalidone 25 mg once a day. 3. Albuterol inhaler. 4. Benazepril 10 mg once a day. 5. Ibuprofen 800 mg 4 times a day. 6. Vitamin D. She does smoke. Surgically, she has had a hysterectomy, prior to that an endometrial ablation. She has had 2 C-sections. She states she is a social drinker. PHYSICAL EXAMINATION: VITAL SIGNS: Blood pressure is 110/70 with a pulse of 90, respirations 16. She is afebrile. GENERAL: She appeared to be well developed, well nourished, in no acute distress. SKIN: Color is normal. Skin is warm and dry. Her face did seem to be slightly flushed. NECK: Neck veins not distended. Carotids normal. CHEST: Clear. CARDIAC: Demonstrated sinus tachycardia. ABDOMEN: Soft and nontender. EXTREMITIES: Normal. NEUROLOGICAL: She seemed to be intact, but she did seem to have some athetoid-type movements in the arms and legs and some head jerking and facial twitches. Reflexes were normal. ASSESSMENT: She is admitted to the hospital with diagnoses: 1. Hypokalemia. 2. Athetoid movements, etiology unknown. PLAN: 1. Bedrest. 2. IV fluids. 3. Monitoring of her neurologic status. 4. Correct hypokalemia. 5. Neurology consult. MMODL / IJN: [id number] /
--- NOTE | 2022-05-02 06:41 | PN ---
PROGRESS NOTE CHIEF COMPLAINT: Muscle spasms or athetoid movements. HISTORY OF PRESENT ILLNESS: This lady states that she feels fine. Her vital signs are normal. She is not complaining of any neurologic problems, weakness in either upper or lower extremities, etc. PHYSICAL EXAMINATION: CHEST: Clear. CARDIAC: Exam is normal. MUSCULOSKELETAL: She does seem to be having some purposeless, sometimes athetoid movements particularly in the hands and arms. IMPRESSION: 1. Athetosis. 2. Hypokalemia. PLAN: 1. Continue replacing potassium. 2. Continue neurologic workup. MMODL / IJN: [id number] /
--- NOTE | 2022-05-02 06:44 | PN ---
PROGRESS NOTE CHIEF COMPLAINT: Athetosis. HISTORY OF PRESENT ILLNESS: This lady states she is doing well and feeling fine, but it is apparent that she is having more purposeless movements, these are suggestive of athetosis. She actually seems to be getting worse. Her speech seems to be not as carefully formed as usual. PHYSICAL EXAMINATION: CHEST: Clear. CARDIAC: Exam is normal. She seems to be having more athetoid like movements in the face and upper extremities. IMPRESSION: 1. Athetosis. 2. Rule out any neurologic disorder such as [place] disease, etc. PLAN: Neurology has further studies set up. If she continues to worsen, she should be probably be transferred to a tertiary center. MMODL / IJN: [id number] /
--- NOTE | 2022-05-02 06:59 | PN ---
PROGRESS NOTE CHIEF COMPLAINT: Abnormal muscle movements. HISTORY OF PRESENT ILLNESS: This lady seems to be doing well. She states she feels better. She is still having some twitching and purposeless movements in the upper extremities and face. PHYSICAL EXAMINATION: VITAL SIGNS: Normal. CHEST: Clear. CARDIAC: Normal. IMPRESSION: Motor abnormality with athetosis. PLAN: Neurology is seeing her, and workup continues. She has no other complaints such as chest pain, fever, chills, etc. MMODL / IJN: [id number] /
--- NOTE | 2022-05-04 05:35 | DS ---
DISCHARGE SUMMARY CHIEF COMPLAINT: Dizziness and athetosis. HISTORY OF PRESENT ILLNESS AND PHYSICAL EXAMINATION: Details of this lady's history and physical can be found in the initial workup. LABORATORY STUDIES: While she was in the hospital, she had laboratory studies, details of which can be found in the laboratory section of her chart. COURSE IN THE HOSPITAL: After admission, she was placed on bedrest, started on intravenous fluids, and underwent neurologic evaluation. She was seen by Neurology. The interesting part of her hospital course is it is seen that as the days went by her athetoid movement seemed to get a little bit worse. She had no focal neurologic problems. She has had no family history of any neurologic diseases. It was felt that she could go home and her workup will continue as an outpatient. I wonder about the possibility of Soledad's chorea or other neurologic diseases. She will go home on usual activity, diet, and medications, and we will see her in the office in several days. FINAL DIAGNOSIS: Dizziness and athetosis. OPERATIONS: None. CONSULTATION: Neurology. She is improved. OLEKSANDR / FAINA: [id number] /
== END 2022-05-01 19:30 | disposition home or self-care (01) ==
LOC: EC 13:44 → INTOOBSV 15:24 → 4SSUR 15:24 → UNDODISIN 05-01 19:30
PROVIDERS: ADMIT Family Medicine; ATTEND Family Medicine
PROC: 4A10X4Z Monitoring of Central Nervous Electrical Activity, External Approach (ICD-10-PCS; principal; 2022-04-30)
DX: R25.8 Other abnormal involuntary movements (principal); G93.40 Encephalopathy, unspecified; E87.6 Hypokalemia; R42 Dizziness and giddiness; I10 Essential (primary) hypertension; E78.5 Hyperlipidemia, unspecified; I45.10 Unspecified right bundle-branch block; H53.8 Other visual disturbances; R00.0 Tachycardia, unspecified; R11.0 Nausea; M62.838 Other muscle spasm; J98.11 Atelectasis; E04.1 Nontoxic single thyroid nodule; M50.221 Other cervical disc displacement at C4-C5 level; M48.061 Spinal stenosis, lumbar region without neurogenic claudication; M51.36 Other intervertebral disc degeneration, lumbar region; F17.210 Nicotine dependence, cigarettes, uncomplicated; F41.9 Anxiety disorder, unspecified; Z79.899 Other long term (current) drug therapy; Z88.5 Allergy status to narcotic agent; Z98.51 Tubal ligation status; Z80.8 Family history of malignant neoplasm of other organs or systems
CPT/HCPCS: 96366 ×2; 96365; 96375; 99285; 36415; 95816; 93005; 93306; 97162; 97166; 84439; 80061; 80053; 80048; 82607; 82746; 83605; 83735; 84443; 85025; 85610; 85730; 81001; 80306; 83036; 71046; 93880; 70450; 70551; 72156; 72158; G0378 ×4; J0515; J3480; A9585

== ENCOUNTER 2022-06-21 09:25 | Day surgery (SDC) | payer BC ==
[2022-06-21 09:45] VITALS: RESP 18; TEMP 98.6
[2022-06-21 11:16] VITALS: BP 108/75; PULSE 72
--- NOTE | 2022-06-21 11:43 | US ---
EXAMINATION TYPE: US thyroid st tissue head/neck, discontinued thyroid fine-needle aspiration biopsy DATE OF EXAM: 06/21/2022 COMPARISON: Carotid ultrasound 04/29/2022 CLINICAL HISTORY: E04.1 NONTOXIC SINGLE THYROID NODULE. GLAND SIZE: Right Lobe: 5.0 x 1.6 x 1.3 cm Overall Parenchyma: homogenous Left Lobe: 4.5 x 1.6 x 1.4 cm Overall Parenchyma: homogeneous Isthmus Thickness: 0.10 cm NODULES RIGHT: # of nodules measured on right: 0 LEFT: # of nodules measured on left: 1. 0.9 X 0.7 x 0.8 cm, upper, solid or almost completely solid, hypoechoic nodule, which is wider t car[place]quillo tall, with smooth margins, without echogenic foci. No prior 2. 1.1 x 0.8 X 1.1cm, lower, mixed cystic and solid, hypoechoic nodule, which is wider than tall, w ith smooth margins, without echogenic foci. No prior ISTHMUS: # of nodules measured in the isthmus: 0 Bilateral neck scanned, no evidence of lymphadenopathy. Following discussion with the patient and patient's , patient has elected to defer thyroid fin e-needle aspiration this time IMPRESSION: Suspicious lesion, recommend follow-up ultrasound in one year 2017 ACR TI-RADS LEVEL: TR 4 *Highest TI-RADS level nodule reported
== END 2022-06-21 11:35 | disposition home or self-care (01) ==
LOC: RADPROMAIN 09:25
PROVIDERS: ATTEND Family Medicine
DX: E04.1 Nontoxic single thyroid nodule (principal)
CPT/HCPCS: 36415; 76536

== ENCOUNTER → 2024-12-11 | Outpatient (CLI) | payer BC ==
--- NOTE | 2024-12-14 09:25 | MM ---
Reason for Exam: Screening (asymptomatic). Last mammogram was performed 1 year(s) and 1 month(s) ago. Patient History: Menarche at age 11. First Full-Term at age 22. Postmenopausal. Hormonal Contraceptives, starting at age 23 for 10 years. 11/27/2006, Benign Core Biopsy on the right side. Paternal cousin had breast cancer, age 40. Paternal aunt had breast cancer, age 58. Paternal aunt had breast cancer, age 56. Risk Values: Shyla 5 year model risk: 1.5%. NCI Lifetime model risk: 7.7%. Prior Study Comparison: 04/30/2016 Right Diagnostic Mammogram, [facility]. 07/31/2017 Bilateral Diagnostic Mammogram, [facility]. 12/26/2018 Bilateral Screening Mammogram, [facility]. 05/07/2022 Bilateral Screening Mammogram, [facility]. 10/31/2023 Bilateral Screening Mammogram, [facility]. Tissue Density: The breasts are heterogeneously dense, which may obscure small masses. Findings: Analyzed By CAD. A few tiny benign-appearing round calcifications bilaterally are redemonstrated. There are stable 2 small circumscribed masses in the right breast. There is stable 7 mm circumscribed mass in the medial left breast. There is no suspicious new group of microcalcifications or new suspicious mass in either breast. Overall Assessment: Benign, BI-RAD 2 Management: Screening Mammogram of both breasts in 1 year. . Patient should continue monthly self-breast exams. A clinical breast exam by your physician is recommended on an annual basis. This exam should not preclude additional follow-up of suspicious palpable abnormalities. Note on Shyla scores and lifetime risk: 1. A Shyla score greater than 3% is considered moderate risk. If this is the case, consider specialist referral to assess eligibility for a risk reducing agent. 2. If overall lifetime risk for the development of breast cancer is 20% or higher, the patient may qualify for future screening with alternating mammogram and breast MRI. [facility], , 12/14/2024 9:22 AM. Electronically signed and approved by: Dg Henry M.D.
== END | disposition home or self-care (01) ==
LOC: RADMAMWWP 14:38
PROVIDERS: ATTEND Family Medicine
DX: Z12.31 Encounter for screening mammogram for malignant neoplasm of breast (principal); R92.333 Mammographic heterogeneous density, bilateral breasts; N63.10 Unspecified lump in the right breast, unspecified quadrant; Z78.0 Asymptomatic menopausal state; Z80.3 Family history of malignant neoplasm of breast; Z92.0 Personal history of contraception
CPT/HCPCS: 77063; 77067

== ENCOUNTER 2025-03-15 08:43 | Day surgery (SDC) | payer BC ==
[2025-03-12 11:00] VITALS: BMI 25.2
[2025-03-15 09:15] VITALS: TEMP 97
[2025-03-15] MEDS: IV FLUID CONTINUATION 1,000 ML IV ONE (09:19)
[2025-03-15] MEDS: LACTATED RINGERS 1,000 ML IV SCH (09:19)
[2025-03-15] MEDS ORDERED: LIDOCAINE 2% (PF) 20 MG/ML 5 ML VIAL ONE (09:39)
[2025-03-15] MEDS ORDERED: PROPOFOL 10 MG/ML 20 ML VIAL IV ONE (09:39)
--- NOTE | 2025-03-15 10:02 | P.PCN ---
Date of Procedure: 03/15/25 Preoperative Diagnosis: Blood in stool Postoperative Diagnosis: Internal hemorrhoids Sigmoid colon polyp Diverticulosis Procedure(s) Performed: Colonoscopy with forcep polypectomy Anesthesia: MAC Surgeon: Sly Ruiz Pathology: other (Sigmoid colon polyp) Condition: stable Disposition: same day Indications for Procedure: 59-year-old female presents today for colonoscopy. She has history of blood in stool with plan for further evaluation with colonoscopy. Risks, benefits and alternatives were provided to the patient. All questions answered prior to attending the endoscopy suite. Operative Findings: Small sigmoid colon polyp Diverticulosis Internal hemorrhoid Description of Procedure: The patient was brought to the endoscopy suite and placed in left lateral decubitus position and adequate sedation was achieved using conscious sedation. Digital rectal exam was performed and mild internal hemorrhoids were palpated. An endoscope was then placed in the rectum and advanced to the cecum as identified by landmarks including the appendiceal orifice and the ileocecal valve. The prep was good. The colonoscope was then slowly withdrawn, examining for any mucosal abnormalities. The cecum, ascending, transverse, descending and sigmoid colon were visualized adequately. There were no large neoplastic lesions noted throughout the colon. Diverticulosis was noted scattered throughout the descending and sigmoid colon. Small sigmoid colon polyp was encountered and this was removed with forcep polypectomy. Hemostasis was maintained. Retroflexion was performed in the rectum and internal hemorrhoids. Excess air was removed, the colonoscope withdrawn and the procedure terminated. The patient was then transferred to the recovery unit in stable condition. Repeat colonoscopy should be performed in 5 years.
[2025-03-15 10:29] VITALS: BP 131/80; PULSE 81; RESP 16
== END 2025-03-15 10:43 | disposition home or self-care (01) ==
LOC: ORWHC2ENDO 08:43
PROVIDERS: ATTEND Surgery
DX: K63.5 Polyp of colon (principal); K57.30 Diverticulosis of large intestine without perforation or abscess without bleeding; K64.8 Other hemorrhoids; I10 Essential (primary) hypertension; E78.5 Hyperlipidemia, unspecified; J44.9 Chronic obstructive pulmonary disease, unspecified; F41.9 Anxiety disorder, unspecified; F17.200 Nicotine dependence, unspecified, uncomplicated; Z79.899 Other long term (current) drug therapy
CPT/HCPCS: 88305; 45380; J2704; J2003